=== PATIENT | female | born 1995 | race Caucasian/White ===

== ENCOUNTER 2018-01-06 12:56 | Outpatient (CLI) | payer OTHER | END 2018-01-07 13:12 | disposition home or self-care (01) | LOC: OBS/DEL 12:56 | DX: O23.43 Unspecified infection of urinary tract in pregnancy, third trimester (principal); O60.03 Preterm labor without delivery, third trimester; Z34.03 Encounter for supervision of normal first pregnancy, third trimester ==

== ENCOUNTER 2018-02-11 13:42 | Inpatient (IN) | payer OTHER ==
[~2018-02-11] VITALS: Ht 160 cm; Wt 83.5 kg
== END 2018-02-14 17:33 | disposition home or self-care (01) | DRG 775 ==
LOC: LDR 13:42 → OB/GYN 13:42 → LDR 21:40 → OB/GYN 02-12 19:17
PROC: 10E0XZZ Delivery of Products of Conception, External Approach (ICD-10-PCS; principal; 2018-02-12)
PROC: 0HQ9XZZ Repair Perineum Skin, External Approach (ICD-10-PCS; 2018-02-12)
PROC: 0UQMXZZ Repair Vulva, External Approach (ICD-10-PCS; 2018-02-12)
PROC: 10907ZC Drainage of Amniotic Fluid, Therapeutic from Products of Conception, Via Natural or Artificial Opening (ICD-10-PCS; 2018-02-12)
PROC: 3E033VJ Introduction of Other Hormone into Peripheral Vein, Percutaneous Approach (ICD-10-PCS; 2018-02-12)
PROC: 4A1HXCZ Monitoring of Products of Conception, Cardiac Rate, External Approach (ICD-10-PCS; 2018-02-12)
DX: O70.0 First degree perineal laceration during delivery (principal); O71.82 Other specified trauma to perineum and vulva; O99.824 Streptococcus B carrier state complicating childbirth; Z3A.36 36 weeks gestation of pregnancy; Z37.0 Single live birth